=== PATIENT | female | born 1975 | race Caucasian/White ===

== ENCOUNTER → 2017-04-16 | Outpatient (CLI) | payer BC ==
--- NOTE | 2017-04-16 15:35 | XR ---
EXAMINATION TYPE: XR KUB DATE OF EXAM: 04/16/2017 COMPARISON: NONE HISTORY: Right-sided kidney stone TECHNIQUE: One view abdominal series FINDINGS: The osseous structures are intact. The bowel gas pattern is nonspecific. Extensive retained fecal de bris in the right colon. Evidence of previous surgery. Nonspecific calcifications in the pelvis. Adjacent to the right L3-L4 disc space level is a 4 mm calculus. IMPRESSION: 1. Right-sided ureteral calculus noted
== END | disposition home or self-care (01) ==
LOC: RADXRMAIN 15:05
PROVIDERS: ATTEND Urology
DX: N20.1 Calculus of ureter (principal)
CPT/HCPCS: 74000

== ENCOUNTER → 2017-04-24 | Outpatient (CLI) | payer BC ==
[2017-04-24 15:49] LABS: Basophils % (A) 0 %; CH 30.1; CHCM 33.2; Eosinophils # (A) 0.2 k/uL (0-0.7); Eosinophils % (A) 2 %; HCT 38.3 % (34.0-46.0); HDW 2.28; HGB 12.5 gm/dL (11.4-16.0); Luc # (Auto) 0.21; Luc % (Auto) 2; Lymphocytes # (A) 2.5 k/uL (1.0-4.8); Lymphocytes % (A) 27 %; MCH 29.7 pg (25.0-35.0); MCHC 32.6 g/dL (31.0-37.0); Mean Platelet Volume 6.1; Monocytes # (A) 0.4 k/uL (0-1.0); Monocytes % (A) 4 %; Neutrophils # (A) 5.9 k/uL (1.3-7.7); Neutrophils % (A) 64 %; RBC 4.21 m/uL (3.80-5.40); RDW 12.5 % (11.5-15.5); WBC 9.2 k/uL (3.8-10.6); WBC (Perox) 9.21
[2017-04-24 15:59] LABS: Calcium 9.2 mg/dL (8.4-10.2); Potassium 3.8 mmol/L (3.5-5.1)
== END | disposition home or self-care (01) ==
LOC: LABPAT 15:12
PROVIDERS: ATTEND Physician Assistant
DX: Z01.812 Encounter for preprocedural laboratory examination (principal); N20.1 Calculus of ureter; Z79.899 Other long term (current) drug therapy
CPT/HCPCS: 36415; 80048; 85025

== ENCOUNTER → 2017-05-08 | Outpatient (CLI) | payer BC ==
--- NOTE | 2017-05-08 15:03 | XR ---
Abdomen HISTORY: Kidney stones, follow-up lithotripsy Single frontal view of the abdomen correlated prior exam 04/30/2017 In the paraspinal location at L3 level as on prior exam there is a calcification measuring approximat luz 4 to 5 mm compatible with residual stone. Postop changes are noted over the pelvis, multiple calc ifications seen in the pelvis. Lung bases are not included on the exam. No evident bowel obstruction or pneumoperitoneum. IMPRESSION: There is residual smaller calcification at the L3 transverse process level on the right.
== END | disposition home or self-care (01) ==
LOC: RADXRMAIN 12:04
PROVIDERS: ATTEND Urology
DX: N20.0 Calculus of kidney (principal)
CPT/HCPCS: 74000

== ENCOUNTER → 2017-06-14 | Outpatient (CLI) | payer BC ==
--- NOTE | 2017-06-14 14:10 | XR ---
Abdomen HISTORY: Right-sided kidney stone, history of lithotripsy Frontal view of the abdomen correlated to prior abdomen dated 05/08/2017 The calcification adjacent to the right L3 transverse process is no longer seen. Probable phleboliths in the pelvis, postop changes are noted as on prior. Lung bases are not included on the exam. IMPRESSION: Right paraspinal calcification no longer seen.
== END | disposition home or self-care (01) ==
LOC: RADXRMAIN 12:01
PROVIDERS: ATTEND Physician Assistant
DX: N20.1 Calculus of ureter (principal)
CPT/HCPCS: 74000